=== PATIENT | male | born 1940 | race Caucasian/White ===

== ENCOUNTER → 2016-11-22 | Outpatient (CLI) | payer MEDICARE, OTHER | END | disposition home or self-care (01) | LOC: M SMT 09:10 | PROVIDERS: ATTEND Urology | DX: C61 Malignant neoplasm of prostate (principal) ==

== ENCOUNTER → 2017-06-06 | Outpatient (CLI) | payer MEDICARE, OTHER | LOC: M SMT 09:08 | PROVIDERS: ATTEND Urology | DX: C61 Malignant neoplasm of prostate (principal) ==

== ENCOUNTER → 2017-06-20 | Outpatient (CLI) | payer MEDICARE, OTHER ==
--- NOTE | 2017-06-21 07:23 | RADONC ---
RADIATION ONCOLOGY FOLLOWUP NOTE DATE: 06/20/2017 CHART NUMBER: [id number] DIAGNOSIS: Prostate cancer. STAGE: IIA, A4tT8G5. ECOG PERFORMANCE STATUS: 0 FOLLOWUP NOTE: Mr. 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 The patient presents today reporting that he is doing quite well with no complaints at this time related to his radiation therapy or disease. He has no urinary or bowel difficulties and no bone pain. REVIEW OF SYSTEMS: The patient's review of systems is noncontributory. He denies nausea, vomiting, fevers, chills, night sweats, diplopia, headaches, anxiety or depression, anorexia, weight loss, visual disturbances, chest pain, urinary or bowel difficulties, bone pain or neurological problems. PHYSICAL EXAMINATION: The patient is a well-developed, well-nourished male in no acute distress. HEENT exam is normocephalic, atraumatic. Extraocular movements are intact. There is no palpable cervical, supraclavicular, infraclavicular, axillary, or inguinal lymphadenopathy present. Lungs are clear to auscultation and percussion. Heart has a regular rate and rhythm. Abdomen is benign with no hepatosplenomegaly, masses, or tenderness. Rectal examination reveals a normal anal sphincter tone. His prostate is smooth with no evidence of nodularity. Skeletal examination reveals no tenderness to pressure or percussion of the bony skeleton. Extremities reveal no clubbing, cyanosis, or edema. Neurologic exam is grossly intact as is the remainder of the physical examination. ASSESSMENT: The patient is clinically VLAD at this time and will be seen by us again in 1 year for further followup. He will also continue be followed by his other physicians as well. cc: MD Shankar Engle MD
== END ==
LOC: M ONCR 09:20
PROVIDERS: ATTEND Radiology Radiation Oncology
DX: C61 Malignant neoplasm of prostate (principal)

== ENCOUNTER → 2017-10-11 | Outpatient (REF) | payer MEDICARE, OTHER ==
[2017-10-11 18:35] LABS: FERRITIN 24 NG/ML (26-388); PERCENT SATURATION 12.2 % (19.7-50.0); TOTAL IRON BINDING CAPACITY 393 UG/DL (250-450)
[2017-10-11 18:44] LABS: FOLATE > 24.0 NG/ML; VITAMIN B12 LEVEL 469 PG/ML
== END ==
LOC: M LAB REF 17:14
DX: D64.9 Anemia, unspecified (principal)
CPT/HCPCS: 82746

== ENCOUNTER → 2017-10-20 | Outpatient (REF) | payer MEDICARE, OTHER | LOC: M LAB REF 10:42 | DX: D50.9 Iron deficiency anemia, unspecified (principal); K21.9 Gastro-esophageal reflux disease without esophagitis; N18.2 Chronic kidney disease, stage 2 (mild) | CPT/HCPCS: 82270 ==

== ENCOUNTER → 2017-10-22 | Outpatient (CLI) | payer MEDICARE, OTHER | LOC: M RAD 10:03 | DX: N18.2 Chronic kidney disease, stage 2 (mild) (principal); E11.22 Type 2 diabetes mellitus with diabetic chronic kidney disease; N28.1 Cyst of kidney, acquired | CPT/HCPCS: 76775 ==

== ENCOUNTER 2017-10-31 09:31 | Outpatient (CLI) | payer MEDICARE, OTHER ==
[2017-10-31] MEDS: IRON SUCROSE 25 MG in NS 50 ML IV (10:21)
[2017-10-31] MEDS: IRON SUCROSE 475 MG in NS 250 ML IV (11:38)
== END 2017-10-31 15:15 | disposition home or self-care (01) ==
LOC: M INFU 09:31
DX: D50.9 Iron deficiency anemia, unspecified (principal); Z95.5 Presence of coronary angioplasty implant and graft; Z79.899 Other long term (current) drug therapy
CPT/HCPCS: 96365

== ENCOUNTER → 2017-12-10 | Outpatient (CLI) | payer MEDICARE, OTHER ==
[2017-12-10 19:12] LABS: PROSTATIC SPECIFIC AG MONITOR < 0.01 NG/ML (< 4.0)
== END ==
LOC: M SMT 11:27
DX: C61 Malignant neoplasm of prostate (principal)
CPT/HCPCS: 84153

== ENCOUNTER → 2018-04-11 | Outpatient (REF) | payer MEDICARE, OTHER ==
[2018-04-11 13:48] LABS: TOTAL PROTEIN 7.5 GM/DL (6.4-8.2)
[2018-04-11 13:51] LABS: URINE TOTAL PROTEIN 23.3 MG/DL (0-12)
[2018-04-13 08:08] LABS: FREE LAMBDA LIGHT CHAINS URINE 5.24 mg/L (0.24-6.66); KAPPA/LAMBDA RATIO URINE 30.53 (2.04-10.37)
[2018-04-15 11:10] LABS: ALBUMIN 4.32 GM/DL (3.29-5.55); ALBUMIN % 57.6 % (55.8-66.1); ALPHA-1-GLOBULIN % 3.6 % (2.9-4.9); ALPHA-1-GLOBULINS 0.27 GM/DL (0.17-0.41); ALPHA-2-GLOBULINS 0.88 GM/DL (0.42-0.99); ALPHA-2-GLOBULINS % 11.7 % (7.1-11.8); BETA-1-GLOBULINS 0.51 GM/DL (0.28-0.60); BETA-1-GLOBULINS % 6.8 % (4.7-7.2); BETA-2-GLOBULINS 0.38 GM/DL (0.19-0.55); BETA-2-GLOBULINS % 5.1 % (3.2-6.5); GAMMA GLOBULIN % 15.2 % (11.1-18.8); GAMMA GLOBULINS 1.14 GM/DL (0.65-1.58)
[2018-04-18 13:11] LABS: UPEP INTERPRETATION NO M-SPIKE NOTED; URINE VOLUME RANDOM ML
== END ==
LOC: M LAB REF 13:07
DX: R80.9 Proteinuria, unspecified (principal)
CPT/HCPCS: 84165

== ENCOUNTER → 2018-04-18 | Outpatient (CLI) | payer MEDICARE, OTHER | LOC: M RAD 09:14 | DX: N18.2 Chronic kidney disease, stage 2 (mild) (principal); N28.1 Cyst of kidney, acquired; R80.9 Proteinuria, unspecified | CPT/HCPCS: 76775 ==

== ENCOUNTER → 2018-05-20 | Outpatient (CLI) | payer MEDICARE, OTHER ==
[2018-05-20 11:14] LABS: PROSTATIC SPECIFIC AG MONITOR 0.01 NG/ML (< 4.0)
== END ==
LOC: M SMT 09:00
DX: Z85.46 Personal history of malignant neoplasm of prostate (principal)
CPT/HCPCS: 84153

== ENCOUNTER → 2018-08-23 | Outpatient (REF) | payer MEDICARE, OTHER ==
[2018-08-23 14:10] LABS: FERRITIN 51 NG/ML (26-388); IRON (FE) 57 UG/DL (65-175); PERCENT SATURATION 17.2 % (19.7-50.0); TOTAL IRON BINDING CAPACITY 332 UG/DL (250-450)
[2018-08-23 14:25] LABS: FOLATE > 24.0 NG/ML; VITAMIN B12 LEVEL 382 PG/ML
== END ==
LOC: M LAB REF 13:04
DX: D64.9 Anemia, unspecified (principal)
CPT/HCPCS: 82746

== ENCOUNTER → 2018-11-28 | Outpatient (CLI) | payer MEDICARE, OTHER ==
[~2018-11-28] MED LIST: CENT1TAB20 PO; CLOP75TA2 PO; DICL1GEL TD; ELIQ5TAB PO; FAMO40TA3 PO; GLIM4TAB PO; LISI2.5T5 PO; METF10004 PO; NITR0.4S14 SL; PRAV40TA2 PO; TOPR25TA13 PO; VITA-122 PO
[2018-11-30 00:07] LABS: TESTOSTERONE FREE (DIRECT) 1.2 pg/mL (6.6-18.1)
== END ==
LOC: M SMT 08:05
PROVIDERS: ATTEND Urology
DX: Z85.46 Personal history of malignant neoplasm of prostate (principal)

== ENCOUNTER → 2019-04-25 | Outpatient (CLI) | payer MEDICARE, OTHER ==
[~2019-04-25] MED LIST changes: +LISI-1046 PO; -LISI2.5T5 PO; +TOPR25TA PO; -TOPR25TA13 PO
--- NOTE | 2019-04-25 12:08 | REP ---
Urinary tract sonography: History: Bilateral renal cysts including a large right renal cyst. For followup. Chronic kidney disease. Proteinuria. Comparison sonography is from April 18, 2018 and October 22, 2017. Comparison CT study is from April 08, 2015. The 2014 prior study showed a 16.9 cm cyst affecting the right kidney upper pole. The most recent sonography April 18, 2018 reported that this cyst measured 15.8 cm in greatest diameter. Multiple other cysts are seen bilaterally. Today's sonographic findings: Scanning at the level of the urinary bladder shows no bladder wall mass. The prostate elevates the bladder base. There is no evidence of hydronephrosis on either side. Renal cortical echogenicity pattern is normal. The right kidney measures 14.4 x 6.0 x 6.2 cm. Left renal dimensions are 12.6 x 5.4 x 5.1 cm. There are multiple cysts noted bilaterally. The largest is again noted in the upper pole of the right kidney measuring 15.2 x 8.9 x 13.6 cm today. There is a 2.1 cm cyst in the upper pole of the right kidney as well. On the left there is a 2.0 cm cyst in the upper pole, a 2.6 cm cyst in the upper pole, and a 0.9 cm cyst at mid pole level. No mass lesion is seen on either side. No sonographically suspicious features. Impression: Bilateral simple renal cysts. Electronically Signed by Kristopher Orta MD 04/25/2019 12:40 P
== END ==
LOC: M RAD 09:19
PROVIDERS: ATTEND Internal Medicine Nephrology
DX: N18.1 Chronic kidney disease, stage 1 (principal); N28.1 Cyst of kidney, acquired; R80.9 Proteinuria, unspecified

== ENCOUNTER → 2019-06-04 | Outpatient (REF) | payer MEDICARE, OTHER | LOC: M LABSMT 12:49 | PROVIDERS: ATTEND Nurse Practitioner Women's Health | DX: Z85.46 Personal history of malignant neoplasm of prostate (principal) ==

== ENCOUNTER → 2019-12-03 | Outpatient (CLI) | payer MEDICARE, OTHER ==
[~2019-12-03] MED LIST changes: -GLIM4TAB PO; +GLIM4TAB5 PO
== END ==
LOC: M PLALAB 10:21
PROVIDERS: ATTEND Urology
DX: C61 Malignant neoplasm of prostate (principal)

== ENCOUNTER → 2020-01-06 | Outpatient (CLI) | payer MEDICARE, OTHER ==
[~2020-01-06] MED LIST changes: +ISOVUE-370 76% 100ML VIAL (Q9967) As Ordered ONE
--- NOTE | 2020-01-06 09:45 | REP ---
Clinical: Right lower quadrant pain. Renal cyst. Technique: Axial contrast enhanced images from the lung bases to the pubic symphysis using 100 ml Isovue 370 intravenous contrast material along with precontrast, arterial phase, and delayed phase images of the abdomen. Coronal and sagittal re-formations obtained. Findings: Lung bases are clear. Diffuse fatty infiltration to the liver noted without focal hepatic lesion identified. Spleen, pancreas, gallbladder, and bilateral adrenal glands are normal. Right kidney includes large exophytic upper pole cyst measuring 13.3 cm maximal diameter while the left kidney demonstrates multiple smaller cysts measuring up to 2.6 cm maximal diameter. The kidneys are otherwise unremarkable and without hydroureteronephrosis, perinephric stranding or nephroureterolithiasis. The enteric system is without obstruction or acute inflammatory process. Colonic and sigmoid diverticulosis noted without acute diverticulitis. Pelvis demonstrates normal bladder and age appropriate prostate/seminal vesicles with evidence for prior prostate surgery. Bilateral fat containing inguinal hernias noted (left greater than right). No ascites. No free air. No adenopathy. Abdominal aorta without aneurysm or dissection. Musculoskeletal structures demonstrate age-related degenerative changes without acute osseous abnormality. Impression: 1. Renal cysts (right greater than left) as described above. No further urinary tract pathology appreciated. 2. Hepatic steatosis. 3. Diverticulosis without acute diverticulitis. 4. Bilateral fat containing inguinal hernias (left greater than right). Electronically Signed by Vlad Ibarra MD 01/06/2020 09:35 A
== END ==
LOC: M RAD 08:57
PROVIDERS: ATTEND Internal Medicine Nephrology
DX: N18.2 Chronic kidney disease, stage 2 (mild) (principal); N28.1 Cyst of kidney, acquired; R10.31 Right lower quadrant pain
CPT/HCPCS: 74178; Q9967

== ENCOUNTER → 2020-02-17 | Outpatient (CLI) | payer MEDICARE, OTHER ==
[~2020-02-17] MED LIST changes: -ISOVUE-370 76% 100ML VIAL (Q9967) As Ordered ONE
== END ==
LOC: M PLALAB 10:13
PROVIDERS: ATTEND Urology
DX: C61 Malignant neoplasm of prostate (principal)

== ENCOUNTER → 2020-10-21 | Outpatient (REF) | payer MEDICARE, OTHER ==
[~2020-10-21] MED LIST changes: -LISI-1046 PO; +LISI2.5T2 PO
== END ==
LOC: M LAB REF 18:09
PROVIDERS: ATTEND Physician Assistant
DX: R21 Rash and other nonspecific skin eruption (principal)

== ENCOUNTER → 2021-01-26 | Outpatient (REF) | payer MEDICARE, OTHER ==
[2021-01-26 22:07] LABS: PERCENT SATURATION 16.6 % (19.7-50.0)
== END ==
LOC: M LAB REF 17:16
PROVIDERS: ATTEND Nurse Practitioner Family
DX: D50.9 Iron deficiency anemia, unspecified (principal)

== ENCOUNTER → 2021-07-28 | Outpatient (REF) | payer MEDICARE, OTHER ==
[~2021-07-28] MED LIST changes: -LISI2.5T2 PO; +LISI2.5T9 PO
== END ==
LOC: M LAB REF 13:12
PROVIDERS: ATTEND Nurse Practitioner Family
DX: E83.42 Hypomagnesemia (principal)

== ENCOUNTER → 2023-09-28 | Outpatient (REF) | payer MEDICARE, OTHER ==
[~2023-09-28] MED LIST changes: -DICL1GEL TD; +DICL3GEL2 TD
== END ==
LOC: M SFHCDERM 18:08
PROVIDERS: ATTEND Nurse Practitioner Family
DX: D04.62 Carcinoma in situ of skin of left upper limb, including shoulder (principal)

== ENCOUNTER → 2024-02-29 | Outpatient (REF) | payer MEDICARE, OTHER ==
[2024-02-29 18:25] LABS: FERRITIN 66.2 NG/ML (10.5-307.3)
== END ==
LOC: M LAB REF 17:14
PROVIDERS: ATTEND Nurse Practitioner Family
DX: D50.9 Iron deficiency anemia, unspecified (principal)

== ENCOUNTER → 2024-05-09 | Outpatient (REF) | payer MEDICARE, OTHER | LOC: M SFHCDERM 17:25 | PROVIDERS: ATTEND Nurse Practitioner Family | DX: L57.0 Actinic keratosis (principal) ==